=== PATIENT | female | born 1985 | race Caucasian/White ===

== ENCOUNTER 2018-10-15 04:48 | Outpatient (CLI) | payer BC | END 2018-10-15 04:49 | disposition critical access hospital (66) | LOC: EMS 04:48 | PROVIDERS: ATTEND Surgery | DX: R52 Pain, unspecified (principal); R11.10 Vomiting, unspecified; R42 Dizziness and giddiness | CPT/HCPCS: A0425; A0427 ==

== ENCOUNTER 2018-10-15 05:25 | Emergency (ER) | payer BC ==
[2018-10-15] MEDS ORDERED: CEFEPIME 2 GM in SODIUM CHLORIDE 0.9% MINIBAG 100 ML IV STA (05:39)
[2018-10-15] MEDS ORDERED: SODIUM CHLORIDE 0.9% IV STA (05:39)
[2018-10-15] MEDS ORDERED: VANCOMYCIN INJ 1.5 GM in SODIUM CHLORIDE 0.9% 500 ML IV STA (05:39)
[2018-10-15] MEDS ORDERED: metroNIDAZOLE 500 MG/100 ML 500 MG/100 ML BAG IV STA (05:39)
[2018-10-15] MEDS ORDERED: ACETAMINOPHEN 325 MG TABLET PO STA (05:42)
[2018-10-15] MEDS ORDERED: HYDROCORTISONE SUCCINATE 100 MG/2 ML VIAL IVP STA (05:42)
[2018-10-15] MEDS ORDERED: KETOROLAC 30 MG/ML VIAL IVP STA (05:42)
--- NOTE | 2018-10-15 05:46 | ED Physician Documentation ---
History of Present Illness - Stated complaint Stated Complaint: FEVER/TACHY - Chief complaint Chief Complaint: Cardiac - History obtained from History obtained from: Patient, EMS - History of Present Illness Timing: Today - Additonal information Additional information: 33-year-old female with a history of pots has a Port-A-Cath in place and she will typically give herself 500 mL's of fluid to 3 times per week. She was in her usual state of health this week and this morning early she developed a fever she subsequently awoke with chills fever headache tachycardia and overall muscle aches and pains. She feels very ill and she has not felt this ill previously. She is brought to the hospital by ambulance with concerns for sepsis. She denies any specific symptoms such as a cough or urinary symptoms she does have headache she does have fever she has overall muscle aches and pains. Review of Systems Constitutional: reports: Fever, Chills, Myalgias, Fatigue, Sweats Eyes: denies: Decreased vision Ears: denies: Ear pain Nose: denies: Rhinorrhea / runny nose, Congestion Throat: denies: Sore throat Cardiac: denies: Chest pain / pressure, Palpitations Respiratory: denies: Dyspnea, Cough GI: reports: Nausea. denies: Abdominal Pain, Vomiting : denies: Dysuria, Frequency Skin: denies: Rash Musculoskeletal: reports: Back pain, Extremity pain. denies: Neck pain, Joint pain, Joint swelling Neurologic: reports: Generalized weakness. denies: Focal weakness, Numbness PD PAST MEDICAL HISTORY - Past Medical History Past Medical History: Yes Cardiovascular: Other Respiratory: None Neuro: Other Endocrine/Autoimmune: None GI: Other TENTMAKER: None : None Psych: Anxiety Musculoskeletal: None Derm: None Other Past Medical History: POTS, cardiomyopathy, IBS - Past Surgical History Past Surgical History: Yes General: Cholecystectomy /TENTMAKER: section Cardiovascular: Cardiac catheterization HEENT: Tonsil/Adenoidectomy - Present Medications Home Medications: Ambulatory Orders Medication Instructions Recorded Confirmed Fludrocortisone [Florinef] 0.1 mg PO DAILY 10/15/18 10/15/18 Ivabradine HCl [Corlanor] 5 mg PO BID 10/15/18 10/15/18 Midodrine 2.5 mg PO TID 10/15/18 10/15/18 Progesterone,Micronized 1 cap PO DAILY 10/15/18 10/15/18 [Progesterone] - Allergies Allergies/Adverse Reactions: Allergies Allergy/AdvReac Type Severity Reaction Status Date / Time hydromorphone [From Dilaudid] AdvReac Dizziness Verified 10/15/18 05:37 - Social History Does the pt smoke?: No Smoking Status: Never smoker Does the pt drink ETOH?: Yes Does the pt have substance abuse?: No - Immunizations Immunizations are current?: No Immunizations: TDAP >10years/unknown - POLST Patient has POLST: No PD ED PE NORMAL - Vitals Vital signs reviewed: Yes (febrile tachy and hypotensive ) - General General: Alert and oriented X 3, Well developed/nourished - HEENT HEENT: Atraumatic, PERRL, EOMI, Ears normal, Other (dry mucous membranes ) - Neck Neck: Supple, no meningeal sign, No bony TTP - Cardiac Cardiac: No murmur, Other (tachy to 120) - Respiratory Respiratory: No respiratory distress, Clear bilaterally - Abdomen Abdomen: Soft, Non tender - Back Back: No CVA TTP, No spinal TTP - Derm Derm: Normal color, Warm and dry, No rash - Extremities Extremities: No deformity, No edema - Neuro Neuro: Alert and oriented X 3, chain pegger 2-12 intact, No motor deficit, Normal speech Eye Opening: Spontaneous Motor: Obeys Commands Verbal: Oriented GCS Score: 15 - Psych Psych: Normal mood, Normal affect Results - Vitals Vitals: Vital Signs - 24 hr 10/15/18 10/15/18 10/15/18 05:26 05:35 06:00 Temperature 38.1 C H Heart Rate 115 H 114 H 113 H Respiratory 16 20 Rate Blood Pressure 95/64 92/61 85/62 L O2 Saturation 99 17 L 100 10/15/18 10/15/18 10/15/18 06:30 06:46 07:00 Temperature 37.6 C H Heart Rate 112 H 111 H 119 H Respiratory 21 18 16 Rate Blood Pressure 91/61 84/57 L 85/56 L O2 Saturation 100 100 100 10/15/18 10/15/18 10/15/18 07:21 07:54 08:00 Temperature 37.9 C H Heart Rate 112 H 110 H 100 Respiratory 23 22 14 Rate Blood Pressure 89/57 L 86/59 L 84/56 L O2 Saturation 100 100 100 10/15/18 10/15/18 10/15/18 08:25 08:47 09:08 Temperature 37.9 C H Heart Rate 95 89 96 Respiratory 14 14 18 Rate Blood Pressure 82/53 L 81/50 L 86/53 L O2 Saturation 97 97 97 10/15/18 10/15/18 09:30 10:25 Temperature 37.6 C H Heart Rate 95 90 Respiratory 18 16 Rate Blood Pressure 86/54 L 91/65 O2 Saturation 97 96 Oxygen O2 Source Room air - EKG (time done) 0532 Rate: Rate (enter#) (113) Rhythm: Sinus tachycardia QRS: Low voltage Compare to prior EKG: Old EKG unavailable Computer interpretation: Agree with computer - Labs Labs: Laboratory Tests 10/15/18 10/15/18 10/15/18 05:53 05:53 05:53 WBC 4.6 L RBC 3.91 L Hgb 11.9 L Hct 36.7 L MCV 93.9 MCH 30.4 MCHC 32.4 RDW 12.1 Plt Count 84 L MPV 10.1 Neut # (Auto) 4.2 Lymph # (Auto) 0.3 L [place] # (Auto) 0.0 Eos # (Auto) 0.0 Baso # (Auto) 0.0 Absolute Nucleated RBC 0.00 Nucleated RBC % 0.0 Platelet Estimate DECREASED (<130,000) Platelet Morphology 1+ LARGE PLATELETS Sodium 141 Potassium 3.2 L Chloride 109 Carbon Dioxide 23 Anion Gap 9.0 BUN 12 Creatinine 0.8 Estimated GFR (MDRD) 84 L Glucose 90 Lactic Acid 1.7 Calcium 8.0 L Total Bilirubin 0.5 AST 104 H ALT 20 Alkaline Phosphatase 46 Total Protein 6.3 L Albumin 3.3 Globulin 3.0 Albumin/Globulin Ratio 1.1 Lipase 31 Urine Color Urine Clarity Urine pH Ur Specific [place] Urine Protein Urine Glucose (UA) Urine Ketones Urine Occult Blood Urine Nitrite Urine Bilirubin Urine Urobilinogen Ur Leukocyte Esterase Urine RBC Urine WBC Ur Squamous Epith Cells Urine Bacteria Urine Mucus Urine Culture Comments Urine HCG, Qual 10/15/18 10/15/18 07:50 07:50 WBC RBC Hgb Hct MCV MCH MCHC RDW Plt Count MPV Neut # (Auto) Lymph # (Auto) [place] # (Auto) Eos # (Auto) Baso # (Auto) Absolute Nucleated RBC Nucleated RBC % Platelet Estimate Platelet Morphology Sodium Potassium Chloride Carbon Dioxide Anion Gap BUN Creatinine Estimated GFR (MDRD) Glucose Lactic Acid Calcium Total Bilirubin AST ALT Alkaline Phosphatase Total Protein Albumin Globulin Albumin/Globulin Ratio Lipase Urine Color YELLOW Urine Clarity CLEAR Urine pH 7.5 Ur Specific [place] 1.015 1.015 Urine Protein TRACE Urine Glucose (UA) NEGATIVE Urine Ketones NEGATIVE Urine Occult Blood NEGATIVE Urine Nitrite NEGATIVE Urine Bilirubin NEGATIVE Urine Urobilinogen 0.2 (NORMAL) Ur Leukocyte Esterase NEGATIVE Urine RBC 0-5 Urine WBC 0-3 Ur Squamous Epith Cells RARE Squamous Urine Bacteria None Seen Urine Mucus Few Strands Urine Culture Comments NOT INDICATED Urine HCG, Qual NEGATIVE - Rads (name of study) chest Radiology: Prelim report reviewed (Impression: No evidence of acute cardiopulmonary disease.), EMP read indepedently, See rad report Procedures - IVC sono (time) 0540 Bedside IVC sono: IVC measures (cm) (1.2), Dehydration (est 1 liter deficit after one liter in.) PD MEDICAL DECISION MAKING - ED course Complexity details: reviewed old records, reviewed results, re-evaluated patient, considered differential, d/w patient ED course: 33 y/o female with POTS, +NINOSKA, +RF, sogrens, hypergamaglobulin and cardiomyopathy is febrile and feels quite ill. She is febrile tachy and hypotensive and she is administered IV saline, hydrocortisone and sepsis protocol is initiated with empiric antibiotic therapy with cefapime, vanco and flagyl. The concern is for a line associated infection. The patient has a history of complications of her illnesses and slow recovery. Our hospitalist here has asked that we transfer this young woman to a facility with specialist back up to address potential complications as they happen. She is ultimately transferred to [facility] in [place]. Departure - Departure Disposition: 02 Transfer Acute Care Hosp Clinical Impression: Sepsis Qualifiers: Sepsis type: sepsis due to unspecified organism Qualified Code(s): A41.9 - Sepsis, unspecified organism Condition: Serious Discharge Date/Time: 10/15/18 10:40
[2018-10-15 06:10] LABS: BASOPHILS % (AUTO) 0.2 %; EOSINOPHILS % (AUTO) 0.4 %; HGB - HEMOGLOBIN 11.9 g/dL (12.0-16.0); LYMPHOCYTES # (AUTO) 0.3 10^3/uL (1.5-3.5); LYMPHOCYTES % (AUTO) 6.8 %; MEAN CORPUSCULAR HEMOGLOBIN 30.4 pg (27.0-31.0); MEAN CORPUSCULAR HGB CONC 32.4 g/dL (32.0-36.0); MEAN CORPUSCULAR VOLUME 93.9 fL (81.0-99.0); MEAN PLATELET VOLUME 10.1 fL (7.9-10.8); MONOCYTES % (AUTO) 0.4 %; NEUTROPHILS # (AUTO) 4.2 10^3/uL (1.5-6.6); PLT - PLATELET COUNT 84 10^3/uL (130-450); RED BLOOD COUNT 3.91 10^6/uL (4.20-5.40); RED CELL DISTRIBUTION WIDTH 12.1 % (12.0-15.0); WHITE BLOOD COUNT 4.6 x10^3/uL (4.8-10.8)
[2018-10-15 06:20] LABS: ALBUMIN 3.3 g/dL (3.2-5.5); ALBUMIN/GLOBULIN RATIO 1.1 (1.0-2.2); BILIRUBIN,TOTAL 0.5 mg/dL (0.2-1.0); CREATININE 0.8 mg/dL (0.4-1.0); TOTAL PROTEIN 6.3 g/dL (6.7-8.2)
[2018-10-15 06:34] LABS: PLATELET ESTIMATE, MANUAL DECREASED (<130,000) (NORMAL); PLATELET MORPHOLOGY 1+ LARGE PLATELETS (NORMAL)
--- NOTE | 2018-10-15 06:39 | XRAY Report ---
Reason: sepsis screen Procedure Date: 10/15/2018 Accession Number: [id number] / [id number] Procedure: XR - Chest 1 View X-Ray CPT Code: 96524 FULL RESULT: EXAM: CHEST RADIOGRAPHY EXAM DATE: 10/15/2018 06:26 AM. CLINICAL HISTORY: Fever, vomiting COMPARISON: None. TECHNIQUE: 1 view. FINDINGS: Lungs/Pleura: No focal opacities evident. No pleural effusion. No pneumothorax. Mediastinum: Within exam limitations, the cardiomediastinal contour is normal. Other: Right jugular port terminating in the distal superior vena cava. IMPRESSION: No evidence of acute cardiopulmonary disease. RADIA
[2018-10-15] MEDS ORDERED: fentaNYL 100 MCG/2 ML VIAL IVP STA ×2 (07:17→08:03)
[2018-10-15 07:59] LABS: BILIRUBIN,URINE NEGATIVE (NEGATIVE); GLUCOSE, URINE (UA) NEGATIVE (NEGATIVE); KETONES,URINE (UA) NEGATIVE (NEGATIVE); LEUKOCYTE ESTERASE, URINE NEGATIVE (NEGATIVE); NITRITE,URINE NEGATIVE (NEGATIVE); OCCULT BLOOD,URINE NEGATIVE (NEGATIVE); PH,URINE 7.5 PH (5.0-7.5); PROTEIN,URINE TRACE mg/dL (NEGATIVE); UROBILINOGEN,URINE 0.2 (NORMAL) E.U./dL (NORMAL)
[2018-10-15] MEDS ORDERED: ELECTROLYTE-A SOLUTION 1,000 ML IV STA (08:03)
[2018-10-15 08:20] LABS: CLARITY,URINE CLEAR (CLEAR)
[2018-10-15 08:34] LABS: BACTERIA,URINE None Seen /HPF (None Seen); MUCUS,URINE Few Strands; RBC,URINE 0-5 /HPF (0-5); SQUAMOUS EPITHELIAL CELL,UR RARE Squamous (<= Few)
--- NOTE | 2018-10-15 08:46 | ED Physician Documentation ---
ED Addendum - Addendum Addendum: Spoke to Mechanical Engineering Lecturer at [facility] at [address] Alberts graciously accepts in transfer. Patient stable for transfer. Received IV vanco, flagyl and cefepime. Baseline SBP in 90-100 and baseline HR is around 75. COBRA forms completed. Departure - Departure Disposition: 02 Transfer Acute Care Hosp Clinical Impression: Sepsis Qualifiers: Sepsis type: sepsis due to unspecified organism Qualified Code(s): A41.9 - Sepsis, unspecified organism Condition: Serious Discharge Date/Time: 10/15/18 10:40
[2018-10-15] MEDS ORDERED: diphenhydrAMINE INJ 50 MG/ML VIAL IVP STA (09:11)
[2018-10-15 09:35] LABS: HCG UR QUAL NEGATIVE
[2018-10-15 10:56] VITALS: BP 91/65
== END 2018-10-15 10:40 | disposition short-term general hospital (02) ==
LOC: ED 05:25
DX: A41.9 Sepsis, unspecified organism (principal); E86.0 Dehydration; D89.2 Hypergammaglobulinemia, unspecified; R00.0 Tachycardia, unspecified; I42.9 Cardiomyopathy, unspecified
CPT/HCPCS: 36415; 51702; 71045; 80053; 81001; 81025; 83605; 83690; 85025; 87040; 93005; 96365; 96366; 96367; 96368; 96375; 99285; A9270; J1200; J3370; 87086

== ENCOUNTER 2019-06-18 16:34 | Outpatient (CLI) | payer BC, MEDICAID ==
--- NOTE | 2019-06-20 01:34 | Ultrasound Report ---
Reason: SEVERE RLQ PAIN Procedure Date: 06/18/2019 Accession Number: [id number] / [id number] Procedure: US - Pelvic w/Transvaginal CPT Code: Final Report FULL RESULT: EXAM: PELVIC ULTRASOUND EXAM DATE: 06/18/2019 06:00 PM. CLINICAL HISTORY: SEVERE RLQ PAIN. COMPARISON: None. TECHNIQUE: Realtime transabdominal pelvic scan performed to identify the uterus and adnexa and as an overview of other pelvic structures, followed by transvaginal scan to provide greater detail of the uterus and adnexa, with static image documentation. FINDINGS: Uterus: 8.7 x 4.1 x 5.7 cm, volume 106 cc. Anteverted position. Normal overall size and echotexture. Masses: None. Endometrium: 13 mm. No focal endometrial or abnormalities.. Cervix: Unremarkable. Right Ovary: 4.2 x 2.7 x 3 cm, volume 17.7 cc. Normal echotexture and blood flow. Numerous small follicles. Left Ovary: 3.8 x 3 x 3.6 cm, volume 21.1 cc. Normal echotexture and blood flow. 2.2 cm corpus luteum. Numerous small follicles. Free Fluid: None. Other: None. IMPRESSION: No acute sonographic abnormalities. 2.2 cm left ovarian corpus luteum noted. Bilateral ovaries are enlarged, can be seen with polycystic ovarian syndrome. Correlation recommended. RADIA
== END 2019-06-18 16:35 | disposition home or self-care (01) ==
LOC: DI 16:34
PROVIDERS: ATTEND Naturopath
DX: N83.12 Corpus luteum cyst of left ovary (principal); R10.31 Right lower quadrant pain; R93.5 Abnormal findings on diagnostic imaging of other abdominal regions, including retroperitoneum
CPT/HCPCS: 76830; 76856

== ENCOUNTER 2020-03-17 14:40 | Outpatient (CLI) | payer BC, MEDICAID | END 2020-03-17 14:41 | disposition home or self-care (01) | LOC: COV 14:40 | PROVIDERS: ATTEND Family Medicine | DX: U07.1 COVID-19 (principal) ==